=== PATIENT | male | born 1995 | race Caucasian/White ===

== ENCOUNTER 2020-02-11 11:02 | Emergency (ER) | payer SELFPAY ==
[2020-02-11] MEDS ORDERED: Fentanyl 100 MCG/2 ML VIAL ONE (11:29)
[2020-02-11] MEDS ORDERED: Ondansetron PF 4 MG/2 ML Vial ONE (11:30)
[2020-02-11] MEDS ORDERED: Lidocaine 1% PF 5 ML VIAL ONE (11:30)
[2020-02-11] MEDS ORDERED: Boostrix 0.5 ML VIAL ONE (11:30)
--- NOTE | 2020-02-11 11:39 | RAD ---
Exam:Right hand 3 views HISTORY: Pain. Fall. COMPARISON: None FINDINGS: Distal radius fracture with associated deformity and dorsal angulation. There is soft tissu e swelling. Possible intra-articular extension. Carpal bones appear to be intact. Intercarpal joint spaces are preserved. IMPRESSION: Distal radius fracture with associated soft tissue swelling and deformity.
--- NOTE | 2020-02-11 11:40 | RAD ---
Exam:Right wrist 3 views HISTORY: Fall. Pain. Trauma. COMPARISON: None FINDINGS: Dorsally angulated distal radius fracture. Associated deformity and soft tissue swelling. IMPRESSION: Distal radius fracture.
[2020-02-11] MEDS ORDERED: Ketamine 50 MG/ML (10ML VIAL) ONE (12:49)
--- NOTE | 2020-02-11 14:19 | RAD ---
EXAM: 2 views of the right wrist HISTORY: Wrist pain COMPARISON: None FINDINGS: 2 views of the right wrist shows an intra-articular fracture of the radial styloid process. Moderate diffuse soft tissue swelling is seen. No dislocation is present. IMPRESSION: Intra-articular distal radius fracture.
== END 2020-02-11 15:23 | disposition home or self-care (01) ==
LOC: ERS 11:02
DX: S52.571A Other intraarticular fracture of lower end of right radius, initial encounter for closed fracture (principal); W11.XXXA Fall on and from ladder, initial encounter
CPT/HCPCS: 25605; 90471; 90715; 96374; 96375; 99152; 99153; J2405; J3010